=== PATIENT | male | born 1950 | race Caucasian/White ===

== ENCOUNTER 2018-11-14 18:24 | Observation (INO) | payer MEDICARE, OTHER, MEDICAID ==
[~2018-11-14] VITALS: Ht 167.6 cm; Wt 77.3 kg
--- NOTE | 2018-11-14 18:35 | NUR ---
PT IS REFUSING IV AT THIS TIME. IT WAS EXPLAINED THAT PT WILL HAVE LIMITED TX OPTIONS.
[2018-11-14 18:54] LABS: BASOPHILS # (AUTO) 0.1 X10'3 (0-0.2); BASOPHILS % (AUTO) 0.8 % (0-1); EOSINOPHILS # (AUTO) 0.6 X10'3 (0-0.9); EOSINOPHILS % (AUTO) 8.8 % (0-6); HEMATOCRIT 42.4 % (42.0-52.0); HEMOGLOBIN 14.3 g/dl (14.0-17.9); LYMPHOCYTES # (AUTO) 2.5 X10'3 (1.1-4.8); LYMPHOCYTES % (AUTO) 36.4 % (21-51); MEAN CORPUSCULAR HEMOGLOBIN 31.2 PG (27.0-31.0); MEAN CORPUSCULAR HGB CONC 33.6 g/dL (33.0-36.5); MEAN CORPUSCULAR VOLUME 92.9 FL (78-98); MEAN PLATELET VOLUME 7.3 FL (7.4-10.4); MONOCYTES # (AUTO) 0.7 X10'3 (0-0.9); MONOCYTES % (AUTO) 9.7 % (2-12); NEUTROPHILS % (AUTO) 44.3 % (42-75); PLATELET COUNT 302 X10'3 (140-440); RED BLOOD COUNT 4.56 X10'6 (4.70-6.10); RED CELL DISTRIBUTION WIDTH 13.6 % (11.5-14.5); WHITE BLOOD COUNT 6.8 X10'3 (4.5-11.0)
[2018-11-14 19:03] LABS: ALANINE AMINOTRANSFERASE 29 U/L (12-78); ALBUMIN 3.5 G/DL (3.4-5.0); ALKALINE PHOSPHATASE 75 IU/L (46-116); ANION GAP 12 (8-16); ASPARTATE AMINO TRANSFERASE 10 U/L (10-37); BILIRUBIN,TOTAL 0.2 MG/DL (0.1-1.0); BLOOD UREA NITROGEN 16 MG/DL (7-18); BUN/CREATININE RATIO 17.6 (5.4-32.0); CHLORIDE 106 MMOL/L (99-107); CREATININE 0.91 MG/DL (0.60-1.10); GLUCOSE 95 MG/DL (70-104); SODIUM 141 MMOL/L (135-145); TOTAL CARBON DIOXIDE 23.3 MMOL/L (24-32); TOTAL PROTEIN 6.9 G/DL (6.4-8.2); eGFR 83 ML/MIN
[2018-11-14 19:04] LABS: PARTIAL THROMBOPLASTIN TIME 27 SECONDS (22-32)
[2018-11-14] MEDS ORDERED: aspirin 325mg tablet PO ONE (19:10)
[2018-11-14] MEDS ORDERED: enoxaparin 100mg/ml syringe SUBCUT ONE (19:10)
--- NOTE | 2018-11-14 19:29 | NUR ---
pt refused lovenox medication despite doctor and rn explaining benefit of medication.
[2018-11-14] MEDS ORDERED: LORazepam 1 MG tablet PO ONE (19:40)
[2018-11-14] MEDS ORDERED: AMLO10TA4 PO (19:46)
[2018-11-14] MEDS ORDERED: METO25TA6 PO (19:48)
[2018-11-14] MEDS ORDERED: magnesium 2GM in 50ml NS 50 ML IV PRN (20:20)
[2018-11-14] MEDS ORDERED: magnesium Cl slow-release 64mg tablet PO PRN (20:20)
[2018-11-14] MEDS ORDERED: potassium CL 10mEq/100ml bag 100 ML IV PRN ×2 (20:20)
[2018-11-14] MEDS ORDERED: ondansetron/PF 4mg/2ml inj IV PRN (20:20)
[2018-11-14] MEDS ORDERED: acetaminophen 325mg tablet PO PRN (20:20)
[2018-11-14] MEDS ORDERED: potassium Cl 20 mEq SR tablet PO PRN ×2 (20:20)
[2018-11-14] MEDS ORDERED: magnesium 4gm in 100ml NS 100 ML IV PRN (20:20)
--- NOTE | 2018-11-14 20:58 | NUR ---
attempted to call report but rn is unable to take report now.
--- NOTE | 2018-11-14 21:57 | NUR ---
Patient in room PCU 6346L. I have received report from ISIS Nobles in ED and had the opportunity to ask questions and assume patient care. Patient able to ambulate from gurney to bed without difficulty. 20 G R FA and is saline locked. Placed on tele 50. On room air. Does not complain of any CP at this time, just anxiety. Will continue to monitor closely.
--- NOTE | 2018-11-14 22:37 | NUR ---
PAGER ID: [phone] MESSAGE: Ext. [phone], ISIS Perez for new admit 3027U Patient admitted for CP and is requesting Ativan or Valium. States he is very anxious person. Received PO Ativan in ER. Thank you. Addendum: 11/15/18 at 0424 by Caesar Patel RN Received order for ativan PO per Dr. Gleason.
[2018-11-14] MEDS ORDERED: diazepam 2mg tablet PO PRN (22:45)
[2018-11-14 23:00] VITALS: BP 114/60
[2018-11-15 01:08] LABS: ALBUMIN 3.2 G/DL (3.4-5.0); ANION GAP 7 (8-16); BLOOD UREA NITROGEN 18 MG/DL (7-18); BUN/CREATININE RATIO 18.8 (5.4-32.0); CALCIUM 8.9 MG/DL (8.5-10.1); CHLORIDE 106 MMOL/L (99-107); CREATININE 0.96 MG/DL (0.60-1.10); GLUCOSE 147 MG/DL (70-104); MAGNESIUM 2.2 MG/DL (1.5-2.4); POTASSIUM 4.1 MMOL/L (3.5-5.1); SODIUM 140 MMOL/L (135-145); TOTAL CARBON DIOXIDE 26.8 MMOL/L (24-32); eGFR 78 ML/MIN
[2018-11-15 03:00] VITALS: BP 109/51
--- NOTE | 2018-11-15 04:25 | NUR ---
PAGER ID: [phone] MESSAGE: Ext. [phone], ISIS Perez for 3027A Admitted for CP on 11/14. 3hr troponin- 0.06, 6hr troponin- 0.05 and trending down. EKG shows NSR in 90's. Just an update. Thank you.
--- NOTE | 2018-11-15 04:56 | NUR ---
PAGER ID: [phone] MESSAGE: Ext. [phone], ISIS Perez for 1647D Patient was wondering if home meds amlodipine and metoprolol are going to be given in AM. Just checked and not on eMAR. Thanks again!
[2018-11-15 06:30] VITALS: BP 125/67
--- NOTE | 2018-11-15 06:40 | NUR ---
Problems reprioritized. Patient report given, questions answered & plan of care reviewed with ISIS Mina.
--- NOTE | 2018-11-15 06:40 | NUR ---
Patient in room PCU 3027. I have received report from davion and had the opportunity to ask questions and assume patient care.
[2018-11-15] MEDS: heparin, porcine 5000 units/ml vial SQ SCH ×3 (07:22→20:00)
[2018-11-15] MEDS: pantoprazole 40mg Tablet.DR PO SCH (07:22)
[2018-11-15] MEDS: diazepam 2mg tablet PO PRN ×2 (07:23→13:31)
[2018-11-15] MEDS: docusate sod 100mg capsule PO SCH ×2 (07:29→20:14)
[2018-11-15] MEDS: K and/or MAG REPLACEMENT MC SCH (07:29)
[2018-11-15] MEDS: metoprolol succinate 25mg (24-HOUR) SR. Tablet PO SCH (07:30)
[2018-11-15] MEDS: amLODIPine 5mg tablet PO SCH (07:31)
[2018-11-15 07:33] LABS: BASOPHILS # (AUTO) 0.1 X10'3 (0-0.2); BASOPHILS % (AUTO) 1.2 % (0-1); EOSINOPHILS # (AUTO) 0.6 X10'3 (0-0.9); EOSINOPHILS % (AUTO) 10.2 % (0-6); HEMOGLOBIN 13.8 g/dl (14.0-17.9); LYMPHOCYTES # (AUTO) 2.1 X10'3 (1.1-4.8); LYMPHOCYTES % (AUTO) 34.1 % (21-51); MEAN CORPUSCULAR HEMOGLOBIN 31.1 PG (27.0-31.0); MEAN CORPUSCULAR HGB CONC 33.5 g/dL (33.0-36.5); MEAN CORPUSCULAR VOLUME 92.9 FL (78-98); MEAN PLATELET VOLUME 7.4 FL (7.4-10.4); MONOCYTES # (AUTO) 0.6 X10'3 (0-0.9); MONOCYTES % (AUTO) 9.2 % (2-12); NEUTROPHILS # (AUTO) 2.7 X10'3 (1.8-7.7); NEUTROPHILS % (AUTO) 45.3 % (42-75); PLATELET COUNT 280 X10'3 (140-440); RED BLOOD COUNT 4.42 X10'6 (4.70-6.10); RED CELL DISTRIBUTION WIDTH 13.1 % (11.5-14.5)
[2018-11-15] MEDS ORDERED: iohexol 350MG/ML 100ml bottle IV ONE (10:54)
[2018-11-15] MEDS: morphine 2 MG/ML inj. syringe IV PRN ×3 (11:04→21:21)
[2018-11-15 11:30] VITALS: BP 123/91
[2018-11-15 15:30] VITALS: BP 112/61
--- NOTE | 2018-11-15 16:00 | NUR ---
Paged Dr. Whipple PAGER ID: [phone] MESSAGE: [phone] Alexys Mak Patient would like an increase in the valium dosage. patient states he takes 10mg. he is currently very anxious Macey ext [phone]
[2018-11-15] MEDS: diazepam 5mg tablet PO PRN (16:14)
--- NOTE | 2018-11-15 17:30 | NUR ---
Patient transferring to surgical unit. Called and gave report to surgical nurse
--- NOTE | 2018-11-15 17:35 | NUR ---
I have received report from ISIS Christian and had the opportunity to ask questions and assume patient care.
--- NOTE | 2018-11-15 17:45 | NUR ---
Received patient from Tele. He is alert oriented and ambulating around the room. Patient immediately told me that he didn't know what was going on and that he wanted to talk to the doctor. I paged Dr. Whipple; hopefully he will come by and let him know what was on his scans.
[2018-11-15 18:00] VITALS: BP 117/58
[2018-11-15] MEDS ORDERED: amLODIPine 5mg tablet PO SCH (18:00)
--- NOTE | 2018-11-15 18:15 | NUR ---
Problems reprioritized. Patient report given, questions answered & plan of care reviewed with ISIS Perea.
--- NOTE | 2018-11-15 18:20 | NUR ---
Patient in room ABENA 356. I have received report from Gladys Crain and had the opportunity to ask questions and assume patient care. Addendum: 11/15/18 at 1940 by Brit Sow RN Amended: Links added.
[2018-11-15 20:00] VITALS: BP 117/58
[2018-11-15] MEDS ORDERED: diazepam 5mg tablet PO ONE (20:40)
--- NOTE | 2018-11-15 20:41 | NUR ---
pt very anxious had ms 3 hours ago pt stated did not need that but said Valium given 4 hours ago and he is super anxious wants another 5mg. Dr Elkins called and notified of this and that pt wants to take aspirin instead of the heparin as he has bruising from taking aspirin daily already. no orders for aspirin received stated to document and let Am Dr address that. pt also wants to talk with an Md regarding plan of care and trachea deviation. Dr Elkins stated he is unable to do that as he is covering whole hospital and does not know pt well enough. That too was diverted to Am hospitalist. did received a one time order to give an additional 5mg of Valium tonight for the pt.
[2018-11-15] MEDS ORDERED: tamsulosin 0.4mg capsule PO SCH (21:00)
--- NOTE | 2018-11-15 22:05 | NUR ---
resting on side eyes closed no s&s of distress.
[2018-11-16] VITALS: BP 112/66
--- NOTE | 2018-11-16 00:05 | NUR ---
pt voided 650 cl yellow urine in the urinal.
--- NOTE | 2018-11-16 02:15 | NUR ---
resting eyes closed without changes or s&s of distress at this time.
--- NOTE | 2018-11-16 03:52 | NUR ---
pt resting eyes closed without changes.
[2018-11-16 05:15] LABS: BASOPHILS # (AUTO) 0.1 X10'3 (0-0.2); BASOPHILS % (AUTO) 0.9 % (0-1); EOSINOPHILS # (AUTO) 0.6 X10'3 (0-0.9); EOSINOPHILS % (AUTO) 9.6 % (0-6); HEMATOCRIT 42.2 % (42.0-52.0); HEMOGLOBIN 14.1 g/dl (14.0-17.9); LYMPHOCYTES # (AUTO) 1.8 X10'3 (1.1-4.8); LYMPHOCYTES % (AUTO) 27.9 % (21-51); MEAN CORPUSCULAR HEMOGLOBIN 30.9 PG (27.0-31.0); MEAN CORPUSCULAR HGB CONC 33.3 g/dL (33.0-36.5); MEAN CORPUSCULAR VOLUME 92.6 FL (78-98); MEAN PLATELET VOLUME 7.2 FL (7.4-10.4); MONOCYTES # (AUTO) 0.6 X10'3 (0-0.9); MONOCYTES % (AUTO) 9.9 % (2-12); NEUTROPHILS # (AUTO) 3.4 X10'3 (1.8-7.7); NEUTROPHILS % (AUTO) 51.7 % (42-75); PLATELET COUNT 265 X10'3 (140-440); RED BLOOD COUNT 4.56 X10'6 (4.70-6.10); RED CELL DISTRIBUTION WIDTH 13.4 % (11.5-14.5); WHITE BLOOD COUNT 6.5 X10'3 (4.5-11.0)
[2018-11-16 05:32] LABS: ALBUMIN 3.2 G/DL (3.4-5.0); ANION GAP 6 (8-16); BLOOD UREA NITROGEN 14 MG/DL (7-18); BUN/CREATININE RATIO 15.2 (5.4-32.0); CALCIUM 8.8 MG/DL (8.5-10.1); CHLORIDE 106 MMOL/L (99-107); CREATININE 0.92 MG/DL (0.60-1.10); GLUCOSE 129 MG/DL (70-104); MAGNESIUM 2.2 MG/DL (1.5-2.4); POTASSIUM 4.2 MMOL/L (3.5-5.1); SODIUM 141 MMOL/L (135-145); TOTAL CARBON DIOXIDE 29.1 MMOL/L (24-32); eGFR 82 ML/MIN
--- NOTE | 2018-11-16 05:55 | NUR ---
resting without change.
--- NOTE | 2018-11-16 06:41 | NUR ---
Problems reprioritized. Patient report given, questions answered & plan of care reviewed with Ondina Crain. Addendum: 11/16/18 at 0641 by Brit Sow RN Amended: Links added.
--- NOTE | 2018-11-16 07:00 | NUR ---
Patient in room ABENA 356. I have received report from and had the opportunity to ask questions and assume patient care. Addendum: 11/16/18 at 0920 by Ondina Garcia RN received report from ISIS Perea
[2018-11-16] MEDS: heparin, porcine 5000 units/ml vial SQ SCH (07:30)
[2018-11-16] MEDS: docusate sod 100mg capsule PO SCH (07:30)
[2018-11-16] MEDS: pantoprazole 40mg Tablet.DR PO SCH (07:30)
[2018-11-16] MEDS: metoprolol succinate 25mg (24-HOUR) SR. Tablet PO SCH (07:30)
[2018-11-16] MEDS: diazepam 5mg tablet PO PRN ×2 (07:31→13:58)
[2018-11-16] MEDS: amLODIPine 5mg tablet PO SCH (07:31)
[2018-11-16 07:34] VITALS: BP 113/66
[2018-11-16] MEDS: K and/or MAG REPLACEMENT MC SCH (08:00)
--- NOTE | 2018-11-16 08:00 | NUR ---
Pt educated about each medication this AM and the importance of taking each medication. Pt verbalized understanding but refused to take: Protonix - refused because he doesn't normally take it and "doesn't need it" Metoprolol - refused "because i'm not getting up and moving around" - RN encouraged pt to get up and move. Heparin - refused because he wants Aspirin instead which is not ordered at this time. RN educated on the difference between Heparin and Aspirin. Pt verbalized understanding but still refused Heparin. Pt c/o headache and requesting Aspirin. RN notified pt that Aspirin is not ordered at this time and recommended Tylenol until Aspirin can be ordered. Pt refused Tylenol and stated he'll wait for the Aspirin whenever the doctor orders it.
--- NOTE | 2018-11-16 09:27 | NUR ---
Tele removed per order. Order for 24hr tele .
[2018-11-16] MEDS: morphine 2 MG/ML inj. syringe IV PRN (09:41)
[2018-11-16 11:45] VITALS: BP 111/62
--- NOTE | 2018-11-16 13:43 | NUR ---
Dr. Guaman ordered Aspirin for pt per pt request. stated ok to give now.
[2018-11-16] MEDS ORDERED: aspirin 81mg tablet.DR PO SCH (13:45)
[2018-11-16] MEDS ORDERED: PANT40TA4 PO (14:34)
[2018-11-16] MEDS ORDERED: ASPI-1071 PO (14:34)
[2018-11-16] MEDS ORDERED: AZIT500T PO (14:36)
--- NOTE | 2018-11-16 16:06 | NUR ---
Reviewed discharge instructions and new prescriptions with pt. Pt verbalized understanding. Pt stated he would take the antibiotic for 5 days as prescribed, prophylactically for throat soreness. Pt refuses to take the Protonix. Pt educated on the importance of taking Protonix and stated "yeah, but I just won't take it." Wilfredo with [facility] notified pt refuses Protonix. Ludwig's delivering pts Aspirin and abx to bedside.
[2018-11-17] MEDS ORDERED: aspirin 81mg tablet.DR PO SCH (08:00)
== END 2018-11-16 16:22 | disposition home or self-care (01) ==
LOC: ER 18:25 → PCU 3S 20:58 → SUR 3N 11-15 17:47
PROVIDERS: ADMIT Internal Medicine; ATTEND Family Medicine
DX: R07.89 Other chest pain (principal); F41.9 Anxiety disorder, unspecified; R30.0 Dysuria; I11.0 Hypertensive heart disease with heart failure; I50.9 Heart failure, unspecified; Z88.1 Allergy status to other antibiotic agents
CPT/HCPCS: 36415; 71045; 71275; 80048; 80053; 83735; 84153; 84484; 85025; 85379; 85610; 85730; 93005; 96374; 96375; 96376; 99284; G0378; J1644; J2270; Q9967; J1650

== ENCOUNTER 2018-12-21 14:11 | Inpatient (IN) | payer MEDICARE, MEDICAID ==
[~2018-12-21] VITALS: Ht 162.6 cm; Wt 77.0 kg
[~2018-12-21 14:11] MED LIST: AMLO10TA4 PO; ASPI-1071 PO; METO25TA6 PO; PANT40TA4 PO
[2018-12-21 14:36] LABS: BASOPHILS # (AUTO) 0.1 X10'3 (0-0.2); EOSINOPHILS # (AUTO) 0.2 X10'3 (0-0.9); EOSINOPHILS % (AUTO) 3.3 % (0-6); HEMATOCRIT 44.2 % (42.0-52.0); HEMOGLOBIN 14.7 g/dl (14.0-17.9); LYMPHOCYTES # (AUTO) 1.9 X10'3 (1.1-4.8); LYMPHOCYTES % (AUTO) 29.6 % (21-51); MEAN CORPUSCULAR HEMOGLOBIN 30.5 PG (27.0-31.0); MEAN CORPUSCULAR HGB CONC 33.3 g/dL (33.0-36.5); MEAN CORPUSCULAR VOLUME 91.7 FL (78-98); MEAN PLATELET VOLUME 6.8 FL (7.4-10.4); MONOCYTES # (AUTO) 0.5 X10'3 (0-0.9); MONOCYTES % (AUTO) 7.3 % (2-12); NEUTROPHILS # (AUTO) 3.8 X10'3 (1.8-7.7); NEUTROPHILS % (AUTO) 58.8 % (42-75); PLATELET COUNT 320 X10'3 (140-440); RED BLOOD COUNT 4.82 X10'6 (4.70-6.10); WHITE BLOOD COUNT 6.5 X10'3 (4.5-11.0)
[2018-12-21 14:53] LABS: PARTIAL THROMBOPLASTIN TIME 27 SECONDS (22-32)
[2018-12-21 14:55] LABS: ALANINE AMINOTRANSFERASE 37 U/L (12-78); ALBUMIN 3.8 G/DL (3.4-5.0); ALBUMIN/GLOBULIN RATIO 1.1 (1.1-1.5); ALKALINE PHOSPHATASE 62 IU/L (46-116); ANION GAP 8 (8-16); ASPARTATE AMINO TRANSFERASE 19 U/L (10-37); BILIRUBIN,TOTAL 0.4 MG/DL (0.1-1.0); BLOOD UREA NITROGEN 11 MG/DL (7-18); BUN/CREATININE RATIO 10.5 (5.4-32.0); CALCIUM 8.9 MG/DL (8.5-10.1); CHLORIDE 102 MMOL/L (99-107); CREATININE 1.05 MG/DL (0.60-1.10); GLUCOSE 162 MG/DL (70-104); POTASSIUM 4.5 MMOL/L (3.5-5.1); SODIUM 139 MMOL/L (135-145); TOTAL PROTEIN 7.4 G/DL (6.4-8.2); eGFR 70 ML/MIN
[2018-12-21] MEDS ORDERED: aspirin 81mg tab.chew PO ONE ×2 (15:10)
[2018-12-21] MEDS ORDERED: nitroGLYCERIN 0.4mg SUBLingual tab SL PRN (15:10)
[2018-12-21] MEDS ORDERED: ondansetron/PF 4mg/2ml inj IV ONE (15:10)
[2018-12-21] MEDS ORDERED: normal saline 1000ML IV soln IVB ONE (15:10)
[2018-12-21] MEDS ORDERED: METO-539 PO (15:51)
--- NOTE | 2018-12-21 15:51 | NUR ---
ASSISITING RN WITH PT CARE, 1ST LITER NS INFUSING W/O, RECEIVED 1ST NITRO, REFUSING ZOFRAN AT THIS TIME, PT C/O CHEST "PRESSURE" 11/27 PRIOR TO RECEIVING NITRO
--- NOTE | 2018-12-21 15:55 | NUR ---
REPORT TO ARIS MARINELLI
[2018-12-21] MEDS ORDERED: LORazepam 2 mg/ml vial IV ONE (16:10)
[2018-12-21 16:28] LABS: D-DIMER 0.24 MG/L FEU (0-0.50)
[2018-12-21] MEDS ORDERED: magnesium hydroxide 30ml (MOM) UD suspension PO PRN (17:45)
[2018-12-21] MEDS ORDERED: mag hydrox/Alum hydrox/simeth 30ml oral suspension PO PRN (17:45)
[2018-12-21] MEDS ORDERED: ondansetron/PF 4mg/2ml inj IV PRN (17:45)
[2018-12-21] MEDS ORDERED: magnesium 4gm in 100ml NS 100 ML IV PRN (17:45)
[2018-12-21] MEDS ORDERED: potassium Cl 20 mEq SR tablet PO PRN ×2 (17:45)
[2018-12-21] MEDS ORDERED: magnesium 2GM in 50ml NS 50 ML IV PRN (17:45)
[2018-12-21] MEDS ORDERED: magnesium Cl slow-release 64mg tablet PO PRN (17:45)
[2018-12-21] MEDS ORDERED: acetaminophen 325mg tablet PO PRN (17:45)
[2018-12-21] MEDS ORDERED: potassium CL 10mEq/100ml bag 100 ML IV PRN ×2 (17:45)
[2018-12-21] MEDS: diazepam 5mg tablet PO PRN (19:07)
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
[2018-12-21] MEDS ORDERED: heparin 10,000 units/1 ML INJ IV PRN (19:15)
[2018-12-21] MEDS ORDERED: heparin 10,000 units/1 ML INJ IV ONE (19:15)
[2018-12-21] MEDS: heparin 25,000 UNIT/250ml bag 250 ML IV SCH (19:39)
[2018-12-21 19:42] LABS: PARTIAL THROMBOPLASTIN TIME 28 SECONDS (22-32)
--- NOTE | 2018-12-21 19:58 | NUR ---
Patient in room PCU 3015. I have received report from Tamara MARINELLI and had the opportunity to ask questions and assume patient care.
[2018-12-21 20:15] VITALS: BP 143/73
[2018-12-21] MEDS: prazosin 1mg capsule PO SCH (20:34)
[2018-12-21] MEDS: HYDROcodone/acetaminophen 5mg/325mg tablet PO PRN (20:35)
[2018-12-21 23:00] VITALS: BP 103/59
[2018-12-22] VITALS (15 sets, daily range): BP systolic 101–126; BP diastolic 55–74
[2018-12-22] MEDS ORDERED: heparin, porcine 5000 units/ml vial SQ SCH
[2018-12-22 02:21] LABS: BASOPHILS # (AUTO) 0.1 X10'3 (0-0.2); BASOPHILS % (AUTO) 1.2 % (0-1); EOSINOPHILS # (AUTO) 0.4 X10'3 (0-0.9); EOSINOPHILS % (AUTO) 7.4 % (0-6); HEMATOCRIT 39.2 % (42.0-52.0); HEMOGLOBIN 13.2 g/dl (14.0-17.9); LYMPHOCYTES # (AUTO) 2.3 X10'3 (1.1-4.8); MEAN CORPUSCULAR HEMOGLOBIN 30.8 PG (27.0-31.0); MEAN CORPUSCULAR HGB CONC 33.7 g/dL (33.0-36.5); MEAN CORPUSCULAR VOLUME 91.4 FL (78-98); MEAN PLATELET VOLUME 6.9 FL (7.4-10.4); MONOCYTES # (AUTO) 0.5 X10'3 (0-0.9); MONOCYTES % (AUTO) 9.5 % (2-12); NEUTROPHILS % (AUTO) 37.9 % (42-75); PLATELET COUNT 252 X10'3 (140-440); RED BLOOD COUNT 4.29 X10'6 (4.70-6.10); RED CELL DISTRIBUTION WIDTH 13.1 % (11.5-14.5); WHITE BLOOD COUNT 5.3 X10'3 (4.5-11.0)
[2018-12-22 02:36] LABS: ALANINE AMINOTRANSFERASE 30 U/L (12-78); ALBUMIN 3.1 G/DL (3.4-5.0); ALBUMIN/GLOBULIN RATIO 1.1 (1.1-1.5); ALKALINE PHOSPHATASE 50 IU/L (46-116); ANION GAP 6 (8-16); ASPARTATE AMINO TRANSFERASE 16 U/L (10-37); BILIRUBIN,TOTAL 0.4 MG/DL (0.1-1.0); BLOOD UREA NITROGEN 14 MG/DL (7-18); BUN/CREATININE RATIO 19.2 (5.4-32.0); CALCIUM 8.4 MG/DL (8.5-10.1); CHLORIDE 107 MMOL/L (99-107); CREATININE 0.73 MG/DL (0.60-1.10); GLUCOSE 108 MG/DL (70-104); SODIUM 141 MMOL/L (135-145); TOTAL CARBON DIOXIDE 28.3 MMOL/L (24-32); eGFR > 90 ML/MIN
[2018-12-22 02:38] LABS: CHOL/HDL RATIO 4.2 (0.00-4.99); CHOLESTEROL 191 MG/DL (0-200); HDL CHOLESTEROL 46 MG/DL (35-60); LDL CHOLESTEROL 130 MG/DL (50-100); MAGNESIUM 2.2 MG/DL (1.5-2.4); TRIGLYCERIDES 121 MG/DL (20-135)
[2018-12-22] MEDS: heparin 25,000 UNIT/250ml bag 250 ML IV SCH ×2 (02:54→03:07)
[2018-12-22] MEDS: diazepam 5mg tablet PO PRN ×2 (03:07→11:29)
--- NOTE | 2018-12-22 06:05 | NUR ---
Problems reprioritized. Patient report given, questions answered & plan of care reviewed with Maia MARINELLI.
--- NOTE | 2018-12-22 06:07 | NUR ---
Patient in room PCU 3015. I have received report from ISIS Bajwa and had the opportunity to ask questions and assume patient care. Patient currently sleeping in bed, bed locked and low, call light in reach, no acute distress. Will continue to monitor.
[2018-12-22] MEDS: aspirin 81mg tablet.DR PO SCH (07:52)
[2018-12-22] MEDS ORDERED: K and/or MAG REPLACEMENT MC SCH (08:00)
[2018-12-22] MEDS ORDERED: metoprolol succinate 25mg (24-HOUR) SR. Tablet PO SCH (08:00)
[2018-12-22] MEDS: HYDROcodone/acetaminophen 5mg/325mg tablet PO PRN (09:52)
--- NOTE | 2018-12-22 10:00 | NUR ---
Dr. Post at bedside Addendum: 12/22/18 at 1114 by Maia Espinosa RN unfinished note Explaining cath procedure to patient, ordered NS@100ml/hr and benadryl 50mg PO to prepare patient for cath. Nurse told that 20g IV in right wrist is sufficient for procedure and patient does not need to have additional IV access.
[2018-12-22] MEDS ORDERED: diphenhydrAMINE 25mg capsule PO ONE (10:05)
[2018-12-22] MEDS: normal saline 1000ml 1,000 ML IV SCH ×2 (10:28→20:05)
[2018-12-22] MEDS ORDERED: LIDOcaine 1% (10mg/ml)w/preservative injection 20ml MDV ONE (15:09)
[2018-12-22] MEDS ORDERED: midazolam 2 mg/2 ml injection ONE ×2 (15:09→15:31)
[2018-12-22] MEDS ORDERED: iohexol 350 MG/ML 50ML vial IV ONE (15:09)
[2018-12-22] MEDS ORDERED: fentaNYL/PF 50MCG/1 ML 2ML syringe ONE (15:09)
[2018-12-22] MEDS ORDERED: iohexol 350MG/ML 100ml bottle IV ONE (15:10)
--- NOTE | 2018-12-22 15:30 | NUR ---
patient down to chemistry laboratory technician via wheelchair, NS@100ml/hr, heparin@11ml/hr
[2018-12-22] MEDS ORDERED: nitroGLYCERIN-Tridil 50MG/D5W 250 ML IV ONE (15:35)
[2018-12-22] MEDS ORDERED: proCHLORperazine 10 MG/2 ml inj ONE (15:42)
--- NOTE | 2018-12-22 15:54 | NUR ---
PAGER ID: [phone] MESSAGE: ISIS Carvalho, per doctor Sincere, please call laborer electroplating stat
[2018-12-22] MEDS ORDERED: HYDROcodone/acetaminophen 5mg/325mg tablet PO PRN (16:30)
[2018-12-22] MEDS ORDERED: proCHLORperazine 10 MG/2 ml inj IV PRN (16:35)
[2018-12-22] MEDS ORDERED: HYDROcodone/acetaminophen 10/325mg tab PO PRN (16:35)
[2018-12-22] MEDS ORDERED: acetaminophen 325mg tablet PO PRN (16:35)
[2018-12-22] MEDS ORDERED: OXAZEpam 15mg capsule PO PRN (16:35)
--- NOTE | 2018-12-22 18:01 | NUR ---
Student documentation: I have reviewed and agree with all interventions, assessments performed and documented by Raissa Franco.
--- NOTE | 2018-12-22 18:12 | NUR ---
Student documentation: I have reviewed and agree with all interventions, assessments performed and documented by Raissa Franco.
--- NOTE | 2018-12-22 18:13 | NUR ---
Reported off to night coordinator nurse Aydee. Pt is in bed, laying flat due to post cardiac cath. Bed is in low position and locked. Call light in reach.
--- NOTE | 2018-12-22 18:13 | NUR ---
Problems reprioritized. Patient report given, questions answered & plan of care reviewed with ISIS Bajwa. Patient currently resting in bed, bed locked and low, call light in reach, cardiac cath dressing assessed with no bleeding at site or hematoma. VSS at shift change.
--- NOTE | 2018-12-22 18:36 | NUR ---
Patient in room PCU 3015. I have received report from Maia MARINELLI and had the opportunity to ask questions and assume patient care.
[2018-12-22] MEDS: prazosin 1mg capsule PO SCH (21:00)
[2018-12-23 00:53] VITALS: BP 108/54
[2018-12-23 03:00] VITALS: BP 109/56
[2018-12-23 04:53] VITALS: BP 126/64
[2018-12-23 06:00] VITALS: BP 118/64
--- NOTE | 2018-12-23 06:00 | NUR ---
Patient in room PCU 3015. I have received report from Aydee MARINELLI and had the opportunity to ask questions and assume patient care.
--- NOTE | 2018-12-23 06:02 | NUR ---
Problems reprioritized. Patient report given, questions answered & plan of care reviewed with Amy RN.
[2018-12-23 06:31] LABS: ALANINE AMINOTRANSFERASE 30 U/L (12-78); ALBUMIN 3.1 G/DL (3.4-5.0); ALKALINE PHOSPHATASE 49 IU/L (46-116); ANION GAP 6 (8-16); ASPARTATE AMINO TRANSFERASE 15 U/L (10-37); BILIRUBIN,TOTAL 0.4 MG/DL (0.1-1.0); BLOOD UREA NITROGEN 9 MG/DL (7-18); BUN/CREATININE RATIO 9.5 (5.4-32.0); CALCIUM 8.5 MG/DL (8.5-10.1); CHLORIDE 108 MMOL/L (99-107); CREATININE 0.95 MG/DL (0.60-1.10); GLUCOSE 89 MG/DL (70-104); MAGNESIUM 2.2 MG/DL (1.5-2.4); POTASSIUM 4.4 MMOL/L (3.5-5.1); SODIUM 144 MMOL/L (135-145); TOTAL CARBON DIOXIDE 29.8 MMOL/L (24-32); TOTAL PROTEIN 6.1 G/DL (6.4-8.2); eGFR 79 ML/MIN
[2018-12-23 06:33] LABS: BASOPHILS # (AUTO) 0.1 X10'3 (0-0.2); EOSINOPHILS # (AUTO) 0.5 X10'3 (0-0.9); EOSINOPHILS % (AUTO) 8.2 % (0-6); HEMATOCRIT 40.6 % (42.0-52.0); HEMOGLOBIN 13.5 g/dl (14.0-17.9); LYMPHOCYTES # (AUTO) 1.7 X10'3 (1.1-4.8); MEAN CORPUSCULAR HEMOGLOBIN 30.9 PG (27.0-31.0); MEAN CORPUSCULAR HGB CONC 33.3 g/dL (33.0-36.5); MEAN CORPUSCULAR VOLUME 92.6 FL (78-98); MEAN PLATELET VOLUME 7.2 FL (7.4-10.4); MONOCYTES # (AUTO) 0.5 X10'3 (0-0.9); MONOCYTES % (AUTO) 9.2 % (2-12); NEUTROPHILS % (AUTO) 51.6 % (42-75); PLATELET COUNT 259 X10'3 (140-440); RED BLOOD COUNT 4.38 X10'6 (4.70-6.10); RED CELL DISTRIBUTION WIDTH 13.5 % (11.5-14.5); WHITE BLOOD COUNT 5.7 X10'3 (4.5-11.0)
[2018-12-23] MEDS ORDERED: metoprolol succinate 25mg (24-HOUR) SR. Tablet PO SCH (08:00)
[2018-12-23] MEDS ORDERED: METO-395 PO (08:34)
[2018-12-23] MEDS ORDERED: DIAZ5TAB4 PO (08:34)
[2018-12-23] MEDS ORDERED: NITR0.4T51 SL (08:34)
[2018-12-23] MEDS ORDERED: CLOP75TA15 PO (08:34)
[2018-12-23] MEDS ORDERED: ATOR20TA66 PO (08:34)
[2018-12-23] MEDS: aspirin 81mg tablet.DR PO SCH (09:30)
--- NOTE | 2018-12-23 09:40 | NUR ---
Patient discharged stable to home. Discharge instructions given verbally and written. Patient verbalized understanding. PIV removed from right forearm, canula intact. All personal belongings returned to patient. Tele box removed and returned to telephone answerer room. Patient wheeled out to personal vehicle to drive home independently.
--- NOTE | 2018-12-23 09:43 | NUR ---
Prescriptions called to [facility] in [place], [place].
== END 2018-12-23 09:45 | disposition home or self-care (01) | DRG 282 ==
LOC: ER 14:12 → PCU 3S 19:57 → OBSVTOIN 19:57 → CMPBEDREQ 20:02
PROVIDERS: ADMIT Family Medicine; ATTEND Family Medicine
PROC: 4A023N7 Measurement of Cardiac Sampling and Pressure, Left Heart, Percutaneous Approach (ICD-10-PCS; principal; 2018-12-22)
PROC: B2111ZZ Fluoroscopy of Multiple Coronary Arteries using Low Osmolar Contrast (ICD-10-PCS; 2018-12-22)
PROC: B2151ZZ Fluoroscopy of Left Heart using Low Osmolar Contrast (ICD-10-PCS; 2018-12-22)
PROC: B41F1ZZ Fluoroscopy of Right Lower Extremity Arteries using Low Osmolar Contrast (ICD-10-PCS; 2018-12-22)
DX: I21.4 Non-ST elevation (NSTEMI) myocardial infarction (principal); I25.110 Atherosclerotic heart disease of native coronary artery with unstable angina pectoris; F12.90 Cannabis use, unspecified, uncomplicated; F43.12 Post-traumatic stress disorder, chronic; E78.5 Hyperlipidemia, unspecified; F41.1 Generalized anxiety disorder; R00.1 Bradycardia, unspecified; I11.0 Hypertensive heart disease with heart failure; I50.9 Heart failure, unspecified; N40.0 Benign prostatic hyperplasia without lower urinary tract symptoms; Z79.02 Long term (current) use of antithrombotics/antiplatelets; Z79.82 Long term (current) use of aspirin; Z79.899 Other long term (current) drug therapy; Z82.49 Family history of ischemic heart disease and other diseases of the circulatory system; Z88.1 Allergy status to other antibiotic agents; Z88.8 Allergy status to other drugs, medicaments and biological substances; Y92.89 Other specified places as the place of occurrence of the external cause
CPT/HCPCS: 36415; 71045; 80053; 80061; 83735; 84484; 85025; 85379; 85610; 85730; 87081; 93005; 93306; 93458; 96374; 96375; 99152; 99153; 99285; A4620; A6258; C1760; C1769; G0378; J0780; J1644; J2001; J2060; J2250; J2405; J3010; J3490; J7030; Q0163; Q9967

== ENCOUNTER 2019-09-08 12:56 | Emergency (ER) | payer MEDICARE, OTHER, MEDICAID ==
[~2019-09-08] VITALS: Ht 165.1 cm; Wt 80.7 kg
[~2019-09-08 12:56] MED LIST changes: -AMLO10TA4 PO; +ATOR20TA66 PO; +CLOP75TA15 PO; +DIAZ5TAB4 PO; +METO-395 PO; -METO25TA6 PO; -PANT40TA4 PO
[2019-09-08 13:06] VITALS: BP 145/63
[2019-09-08] MEDS ORDERED: HYDR-3965 PO (14:32)
== END 2019-09-08 14:49 | disposition home or self-care (01) ==
LOC: ER 12:56
DX: M25.512 Pain in left shoulder (principal); I50.9 Heart failure, unspecified; I11.0 Hypertensive heart disease with heart failure; F41.9 Anxiety disorder, unspecified; Z88.0 Allergy status to penicillin; Z88.8 Allergy status to other drugs, medicaments and biological substances; Z79.82 Long term (current) use of aspirin; Z79.899 Other long term (current) drug therapy
CPT/HCPCS: 73030; 99284

== ENCOUNTER 2021-02-25 11:27 | Emergency (ER) | payer MEDICARE, OTHER, MEDICAID ==
[~2021-02-25] VITALS: Ht 165.1 cm; Wt 82.5 kg
[2021-02-25 12:33] VITALS: BP 163/79
== END 2021-02-25 17:55 | disposition left against medical advice (07) ==
LOC: ER 11:28
DX: R00.2 Palpitations (principal); I11.0 Hypertensive heart disease with heart failure; I50.9 Heart failure, unspecified; Z88.1 Allergy status to other antibiotic agents; Z88.8 Allergy status to other drugs, medicaments and biological substances; Z79.82 Long term (current) use of aspirin; Z79.899 Other long term (current) drug therapy; Z72.89 Other problems related to lifestyle; Z96.659 Presence of unspecified artificial knee joint
CPT/HCPCS: 93005; 99281; 99283

== ENCOUNTER 2022-04-02 08:23 | Inpatient (IN) | payer MEDICARE, OTHER ==
[~2022-04-02] VITALS: Ht 167.6 cm; Wt 75.0 kg
[2022-04-02] VITALS (9 sets, daily range): BP systolic 139–175; BP diastolic 74–86
[2022-04-02 08:39] LABS: BASOPHILS # (AUTO) 0.1 X10'3 (0-0.2); BASOPHILS % (AUTO) 0.8 % (0-1); EOSINOPHILS # (AUTO) 0.5 X10'3 (0-0.9); EOSINOPHILS % (AUTO) 7.7 % (0-6); HEMATOCRIT 43.1 % (42.0-52.0); HEMOGLOBIN 14.3 g/dl (14.0-17.9); LYMPHOCYTES # (AUTO) 2.5 X10'3 (1.1-4.8); LYMPHOCYTES % (AUTO) 37.3 % (21-51); MEAN CORPUSCULAR HEMOGLOBIN 31.2 PG (27.0-31.0); MEAN CORPUSCULAR HGB CONC 33.3 g/dL (33.0-36.5); MEAN CORPUSCULAR VOLUME 93.7 FL (78-98); MEAN PLATELET VOLUME 7.4 FL (7.4-10.4); MONOCYTES # (AUTO) 0.5 X10'3 (0-0.9); NEUTROPHILS # (AUTO) 3.1 X10'3 (1.8-7.7); NEUTROPHILS % (AUTO) 46.2 % (42-75); PLATELET COUNT 285 X10'3 (140-440); RED CELL DISTRIBUTION WIDTH 13.5 % (11.5-14.5); WHITE BLOOD COUNT 6.6 X10'3 (4.5-11.0)
[2022-04-02] MEDS ORDERED: aspirin 81mg tab.chew PO ONE (09:15)
[2022-04-02 09:27] LABS: BILIRUBIN,TOTAL 0.3 MG/DL (0.1-1.0); BLOOD UREA NITROGEN 15 MG/DL (7-18); BUN/CREATININE RATIO 17.2 (5.4-32.0); CHLORIDE 105 MMOL/L (99-107); CREATININE 0.87 MG/DL (0.60-1.10); POTASSIUM 4.6 MMOL/L (3.5-5.1); SODIUM 140 MMOL/L (135-145); TOTAL PROTEIN 6.6 G/DL (6.4-8.2); eGFR 86 ML/MIN
[2022-04-02] MEDS ORDERED: metoprolol tartrate 50mg tablet PO ONE (09:30)
[2022-04-02] MEDS ORDERED: enoxaparin 100mg/ml syringe SUBCUT ONE (09:40)
[2022-04-02] MEDS ORDERED: nitroGLYCERIN 0.4mg SUBLingual tab SL PRN ×3 (09:49→09:50)
[2022-04-02] MEDS ORDERED: normal saline 1000ml 1,000 ML IV SCH (09:50)
[2022-04-02] MEDS ORDERED: mag hydrox/Alum hydrox/simeth 30ml oral suspension PO PRN (09:50)
[2022-04-02] MEDS ORDERED: magnesium 4gm in 100ml NS 100 ML IV PRN (09:50)
[2022-04-02] MEDS ORDERED: potassium Cl 40MEQ/1/2NS 520ml 520 ML IV PRN (09:50)
[2022-04-02] MEDS ORDERED: acetaminophen 325mg tablet PO PRN ×2 (09:50)
[2022-04-02] MEDS ORDERED: HYDROcodone/acetaminophen 10/325mg tab PO PRN (09:50)
[2022-04-02] MEDS ORDERED: aminophylline 500mg/20ml vial IV PRN (09:50)
[2022-04-02] MEDS ORDERED: HYDROcodone/acetaminophen 5mg/325mg tablet PO PRN (09:50)
[2022-04-02] MEDS ORDERED: PERFLUTREN PROTEIN-A MICROSPHR (Optison) 0.22 MG/ML 3ML VIAL IV ONE (09:50)
[2022-04-02] MEDS ORDERED: potassium Cl 20 mEq SR tablet PO PRN ×2 (09:50)
[2022-04-02] MEDS ORDERED: metoprolol tartrate 1mg/ml inj IV PRN (09:50)
[2022-04-02] MEDS ORDERED: magnesium Cl slow-release 64mg tablet PO PRN (09:50)
[2022-04-02] MEDS ORDERED: regadenoson 0.4mg/5ml syringe IV PRN (09:50)
[2022-04-02] MEDS ORDERED: magnesium hydroxide 30ml (MOM) UD suspension PO PRN (09:50)
[2022-04-02] MEDS ORDERED: ondansetron/PF 4mg/2ml inj IV PRN (09:50)
[2022-04-02] MEDS ORDERED: ondansetron 4mg rapidly disintigrating tab PO PRN (09:50)
[2022-04-02 10:32] LABS: ALANINE AMINOTRANSFERASE 29 U/L (12-78); ALBUMIN 3.3 G/DL (3.4-5.0); ALKALINE PHOSPHATASE 67 IU/L (46-116); ANION GAP 9 (8-16); ASPARTATE AMINO TRANSFERASE 16 U/L (10-37); CALCIUM 8.1 MG/DL (8.5-10.1); GLUCOSE 146 MG/DL (70-104); MAGNESIUM 1.9 MG/DL (1.5-2.4); PHOSPHORUS 2.5 MG/DL (2.3-4.5); TOTAL CARBON DIOXIDE 26.4 MMOL/L (24-32)
[2022-04-02] MEDS ORDERED: diazepam 5mg tablet PO ONE (11:55)
[2022-04-02] MEDS ORDERED: CETI10TA14 PO (13:00)
[2022-04-02] MEDS ORDERED: ATOR10TA70 PO (13:00)
[2022-04-02] MEDS ORDERED: DIAZ5TAB22 PO (13:00)
[2022-04-02] MEDS ORDERED: METO-539 PO (13:00)
[2022-04-02] MEDS ORDERED: AMLO5TAB16 PO (13:00)
--- NOTE | 2022-04-02 13:17 | NUR ---
PT GOING TO [facility]
--- NOTE | 2022-04-02 15:16 | NUR ---
PT HAS RETURNED FROM [facility]. PT IS REQUESTING HIS MORNING BP MEDICATION Addendum: 04/02/22 at [address] OROSCO CALLED REGARDING AM MEDICATION. ORDER TO HOLD MEDS UNTIL HE HAS REVIEWED THE SCAN AND SEEN THE PT. PT WAS NOTIFIED
[2022-04-02 15:20] LABS: CHOL/HDL RATIO 2.5 (0.00-4.99); CHOLESTEROL 135 MG/DL (0-200); HDL CHOLESTEROL 54 MG/DL (35-60); LDL CHOLESTEROL 71 MG/DL (50-100); TRIGLYCERIDES 55 MG/DL (20-135)
[2022-04-02] MEDS: cetirizine 10mg tablet PO SCH (15:35)
[2022-04-02] MEDS ORDERED: atorvastatin 10mg tablet PO SCH (15:35)
[2022-04-02] MEDS: amLODIPine 5mg tablet PO SCH ×2 (15:35→18:03)
[2022-04-02] MEDS: metoprolol succinate 25mg (24-HOUR) SR. Tablet PO SCH (16:43)
[2022-04-02] MEDS ORDERED: nitroGLYCERIN 0.4mg/hour patch TD ONE (17:05)
--- NOTE | 2022-04-02 18:04 | NUR ---
metoprolol and nitro patch held per pt request
[2022-04-02] MEDS: K and/or MAG REPLACEMENT MC SCH (18:21)
[2022-04-02] MEDS: diazepam 5mg tablet PO PRN (19:54)
[2022-04-02] MEDS ORDERED: enoxaparin 80mg/0.8ml syringe SUBCUT SCH (20:00)
[2022-04-02] MEDS ORDERED: temazepam 15mg capsule PO PRN (21:00)
--- NOTE | 2022-04-03 00:35 | NUR ---
Pt states he has aound $200 and 3 credits cards, refused registration keep for him, he wants to keep it with him, Charge nurse notified.
[2022-04-03 02:00] VITALS: BP 131/65
--- NOTE | 2022-04-03 02:49 | NUR ---
Pt at 2:30 AM stated he has bladder cancer and last tight (04/02/2022 )did not take flomax pill which usually he takes daily, primary did bladder scan, residum was 150 ml, after wards he urine again right away, stated he feels better now, it came out most of them, will notify AM nurse to get MD order Flomax daily.
[2022-04-03 06:02] LABS: BASOPHILS # (AUTO) 0.1 X10'3 (0-0.2); EOSINOPHILS # (AUTO) 0.6 X10'3 (0-0.9); EOSINOPHILS % (AUTO) 6.7 % (0-6); MEAN CORPUSCULAR VOLUME 92.8 FL (78-98); MONOCYTES # (AUTO) 0.8 X10'3 (0-0.9); MONOCYTES % (AUTO) 9.5 % (2-12); NEUTROPHILS # (AUTO) 3.9 X10'3 (1.8-7.7)
[2022-04-03 06:05] LABS: HEMATOCRIT 41.6 % (42.0-52.0); HEMOGLOBIN 14.3 g/dl (14.0-17.9); LYMPHOCYTES # (AUTO) 3.1 X10'3 (1.1-4.8); LYMPHOCYTES % (AUTO) 36.3 % (21-51); MEAN CORPUSCULAR HEMOGLOBIN 31.8 PG (27.0-31.0); MEAN CORPUSCULAR HGB CONC 34.3 g/dL (33.0-36.5); MEAN PLATELET VOLUME 8.4 FL (7.4-10.4); NEUTROPHILS % (AUTO) 46.5 % (42-75); RED BLOOD COUNT 4.49 X10'6 (4.70-6.10); RED CELL DISTRIBUTION WIDTH 13.5 % (11.5-14.5); WHITE BLOOD COUNT 8.5 X10'3 (4.5-11.0)
[2022-04-03 06:14] LABS: ALANINE AMINOTRANSFERASE 25 U/L (12-78); ALBUMIN 3.1 G/DL (3.4-5.0); ALKALINE PHOSPHATASE 59 IU/L (46-116); ANION GAP 7 (8-16); BILIRUBIN,TOTAL 0.5 MG/DL (0.1-1.0); BLOOD UREA NITROGEN 10 MG/DL (7-18); BUN/CREATININE RATIO 14.1 (5.4-32.0); CALCIUM 8.6 MG/DL (8.5-10.1); CHLORIDE 105 MMOL/L (99-107); CREATININE 0.71 MG/DL (0.60-1.10); GLUCOSE 114 MG/DL (70-104); MAGNESIUM 2.1 MG/DL (1.5-2.4); SODIUM 139 MMOL/L (135-145); TOTAL CARBON DIOXIDE 26.8 MMOL/L (24-32); TOTAL PROTEIN 6.2 G/DL (6.4-8.2); eGFR > 90 ML/MIN
[2022-04-03 06:17] LABS: ASPARTATE AMINO TRANSFERASE 24 U/L (10-37); PHOSPHORUS 3.3 MG/DL (2.3-4.5); POTASSIUM 4.4 MMOL/L (3.5-5.1)
--- NOTE | 2022-04-03 06:46 | NUR ---
Bedside report to AM Traveller ISIS Hale.
[2022-04-03 07:00] VITALS: BP 140/73
[2022-04-03 07:23] LABS: PLATELET COUNT 241 X10'3 (140-440)
[2022-04-03 07:24] LABS: LARGE PLATELETS FEW; PLATELET ESTIMATE NORMAL
[2022-04-03] MEDS ORDERED: clopidogrel 75mg tablet PO SCH (08:00)
[2022-04-03] MEDS ORDERED: atorvastatin 20mg tablet PO SCH (08:00)
[2022-04-03] MEDS: K and/or MAG REPLACEMENT MC SCH (08:00)
[2022-04-03] MEDS ORDERED: metoprolol succinate 25mg (24-HOUR) SR. Tablet PO SCH (08:00)
[2022-04-03] MEDS: cetirizine 10mg tablet PO SCH (08:09)
[2022-04-03] MEDS: metoprolol succinate 25mg (24-HOUR) SR. Tablet PO SCH (08:09)
[2022-04-03] MEDS: amLODIPine 5mg tablet PO SCH (08:10)
--- NOTE | 2022-04-03 08:20 | NUR ---
"MORNING DR. HAWLEY. PT [place], ROOM 3028B ASKING TO START HIS HOME MEDS FLOMAX 0.4MG FOR BLADDER CANCER AND DIAZEPAM 5 MG BID FOR ANXIETY. THANK YOU, GIANNA Phillips RN"
[2022-04-03] MEDS ORDERED: aspirin 81mg tab.chew PO SCH (08:30)
[2022-04-03] MEDS ORDERED: FLO0.4C PO (12:04)
[2022-04-03] MEDS: diazepam 5mg tablet PO PRN (12:04)
[2022-04-03] MEDS ORDERED: AMLO10TA PO (12:07)
[2022-04-03] MEDS ORDERED: CLOP75TA34 PO (12:07)
[2022-04-03] MEDS ORDERED: NITR0.4T51 SL (12:07)
[2022-04-03] MEDS ORDERED: ATOR40TA PO (12:07)
[2022-04-03 13:00] VITALS: BP 136/72
--- NOTE | 2022-04-03 13:45 | NUR ---
PATIENT LEFT THE FLOOR AT 1319. HE SAID THAT HE WILL WAIT DOWNSTAIRS FOR HIS SISTER. DISCHARGE INSTRUCTIONS PROVIDED. PATIENT VERBALIZED UNDERSTANDING.
--- NOTE | 2022-04-25 08:27 | NUR ---
Case Management DC follow up: Spoke with Patient via telephone.S/P: Patient Reports:. Denies: Acute/continuous CP, emergent SOB, resp distress, orthopnea, dyspnea, N/V, weakness, syncope episodes, orthostatic hypotension, RALPH, blurry vision, s/s of stroke/Be-FAST, dysphagia, bladder pain, hematuria.Verbalizes he intermittently has retention,and a weak stream while voiding.Verbalizes history of prostate cancer.Denies: Abdominal pain/distention, hematochezia, melena, unexplained bruising, bleeding, fever, chills.Verbalizes understanding of new Rx:, why prescribed;continues/resumes current Rx as ordered.Verbalizes understanding of s/s that warrant a 9-11/ER visit for further evaluation.Verbalizes follow up appointment with PCP Donell ZHU 04/28/22.Verbalizes he wants a new marketing graphics specialist opposed to his current marketing graphics specialist.Verbalizes plans to secure a referral from his PCP.Verbalizes everything was good during his stay in the hospital;no complaints.Needs met, questions/concerns addressed at DC;No further questions/concerns regarding recent hospital stay and/or DC status at this time.
== END 2022-04-03 13:17 | disposition home or self-care (01) | DRG 282 ==
LOC: ER 08:23 → ED HOLD 09:55 → PCU 3S 19:30
PROVIDERS: ADMIT Family Medicine; ATTEND Family Medicine
PROC: 4A02XM4 Measurement of Cardiac Total Activity, External Approach (ICD-10-PCS; principal; 2022-04-02)
PROC: 3E033HZ Introduction of Radioactive Substance into Peripheral Vein, Percutaneous Approach (ICD-10-PCS; 2022-04-02)
DX: I21.4 Non-ST elevation (NSTEMI) myocardial infarction (principal); I25.10 Atherosclerotic heart disease of native coronary artery without angina pectoris; E78.5 Hyperlipidemia, unspecified; Z96.653 Presence of artificial knee joint, bilateral; R00.0 Tachycardia, unspecified; F12.90 Cannabis use, unspecified, uncomplicated; F43.10 Post-traumatic stress disorder, unspecified; I11.0 Hypertensive heart disease with heart failure; I50.9 Heart failure, unspecified; Z79.02 Long term (current) use of antithrombotics/antiplatelets; Z79.82 Long term (current) use of aspirin; Z82.49 Family history of ischemic heart disease and other diseases of the circulatory system; Z88.1 Allergy status to other antibiotic agents; Z88.8 Allergy status to other drugs, medicaments and biological substances; Z79.899 Other long term (current) drug therapy; Z85.46 Personal history of malignant neoplasm of prostate
CPT/HCPCS: 36415; 71045; 78452; 80053; 80061; 83735; 83880; 84100; 84484; 85008; 85025; 87081; 93005; 93017; 93306; 96360; 99285; A9500; G0378; J1650; J2785; J7030

== ENCOUNTER 2022-05-16 09:22 | Emergency (ER) | payer MEDICARE, OTHER ==
[~2022-05-16] VITALS: Ht 165.1 cm; Wt 77.0 kg
[~2022-05-16 09:22] MED LIST changes: +AMLO10TA PO; -ATOR20TA66 PO; +CETI10TA14 PO; -CLOP75TA15 PO; +CLOP75TA34 PO; +DIAZ5TAB22 PO; -DIAZ5TAB4 PO; +FLO0.4C PO; -METO-395 PO; +METO-539 PO; +NITR0.4T51 SL
[2022-05-16 10:04] LABS: BASOPHILS % (AUTO) 0.6 % (0-1); EOSINOPHILS # (AUTO) 0.3 X10'3 (0-0.9); EOSINOPHILS % (AUTO) 4.4 % (0-6); HEMATOCRIT 47.6 % (42.0-52.0); LYMPHOCYTES # (AUTO) 1.3 X10'3 (1.1-4.8); LYMPHOCYTES % (AUTO) 18.4 % (21-51); MEAN CORPUSCULAR HEMOGLOBIN 31.2 PG (27.0-31.0); MEAN CORPUSCULAR HGB CONC 33.6 g/dL (33.0-36.5); MEAN CORPUSCULAR VOLUME 92.9 FL (78-98); MEAN PLATELET VOLUME 7.5 FL (7.4-10.4); MONOCYTES # (AUTO) 0.9 X10'3 (0-0.9); MONOCYTES % (AUTO) 13.1 % (2-12); NEUTROPHILS # (AUTO) 4.5 X10'3 (1.8-7.7); NEUTROPHILS % (AUTO) 63.5 % (42-75); PLATELET COUNT 279 X10'3 (140-440); RED BLOOD COUNT 5.12 X10'6 (4.70-6.10); RED CELL DISTRIBUTION WIDTH 13.8 % (11.5-14.5)
[2022-05-16 10:17] LABS: ALANINE AMINOTRANSFERASE 58 U/L (12-78); ALBUMIN 4.2 G/DL (3.4-5.0); ALBUMIN/GLOBULIN RATIO 1.1 (1.1-1.5); ALKALINE PHOSPHATASE 101 IU/L (46-116); ASPARTATE AMINO TRANSFERASE 33 U/L (10-37); BILIRUBIN,TOTAL 0.3 MG/DL (0.1-1.0); CALCIUM 9.2 MG/DL (8.5-10.1); TOTAL CARBON DIOXIDE 32.4 MMOL/L (24-32)
[2022-05-16 10:25] LABS: MAGNESIUM 2.3 MG/DL (1.5-2.4)
[2022-05-16] MEDS ORDERED: acetaminophen 325mg tablet PO ONE (10:50)
[2022-05-16 11:02] LABS: ANION GAP 5 (8-16); BLOOD UREA NITROGEN 16 MG/DL (7-18); BUN/CREATININE RATIO 19.3 (5.4-32.0); CHLORIDE 101 MMOL/L (99-107); CREATININE 0.83 MG/DL (0.60-1.10); GLUCOSE 147 MG/DL (70-104); POTASSIUM 4.4 MMOL/L (3.5-5.1); SODIUM 138 MMOL/L (135-145); eGFR > 90 ML/MIN
--- NOTE | 2022-05-16 12:52 | NUR ---
Notified AUDRA Erickson that pt is c/o increase chest pressure ,takes valium for anxitey ,as per pa give valium 5 mg PO Once.
[2022-05-16] MEDS ORDERED: diazepam 5mg tablet PO ONE (12:55)
[2022-05-16 13:23] VITALS: BP_DIAS 84
[2022-05-16] MEDS ORDERED: amLODIPine 5mg tablet PO ONE (13:50)
[2022-05-16 14:00] VITALS: BP_SYST 148
== END 2022-05-16 15:58 | disposition home or self-care (01) ==
LOC: ER 09:22
DX: R07.89 Other chest pain (principal); I11.0 Hypertensive heart disease with heart failure; I50.9 Heart failure, unspecified; F41.9 Anxiety disorder, unspecified; Z72.89 Other problems related to lifestyle; Z88.1 Allergy status to other antibiotic agents; Z88.8 Allergy status to other drugs, medicaments and biological substances; Z79.899 Other long term (current) drug therapy
CPT/HCPCS: 36415; 71045; 80053; 83735; 83880; 84484; 85025; 85379; 93005; 99285

== ENCOUNTER 2022-09-10 07:20 | Inpatient (IN) | payer MEDICARE, MEDICAID ==
[2022-09-10] VITALS (9 sets, daily range): BP systolic 123–178; BP diastolic 67–97
[~2022-09-10] VITALS: Ht 165.1 cm; Wt 79.5 kg
[2022-09-10 07:44] LABS: BASOPHILS % (AUTO) 0.7 % (0-1); EOSINOPHILS # (AUTO) 0.3 X10'3 (0-0.9); EOSINOPHILS % (AUTO) 5.3 % (0-6); HEMATOCRIT 46.2 % (42.0-52.0); HEMOGLOBIN 15.2 g/dl (14.0-17.9); LYMPHOCYTES % (AUTO) 31.3 % (21-51); MEAN CORPUSCULAR HEMOGLOBIN 30.8 PG (27.0-31.0); MEAN CORPUSCULAR VOLUME 93.3 FL (78-98); MEAN PLATELET VOLUME 7.3 FL (7.4-10.4); MONOCYTES # (AUTO) 0.5 X10'3 (0-0.9); MONOCYTES % (AUTO) 7.7 % (2-12); NEUTROPHILS # (AUTO) 3.5 X10'3 (1.8-7.7); PLATELET COUNT 288 X10'3 (140-440); RED BLOOD COUNT 4.95 X10'6 (4.70-6.10); RED CELL DISTRIBUTION WIDTH 13.3 % (11.5-14.5); WHITE BLOOD COUNT 6.3 X10'3 (4.5-11.0)
[2022-09-10 07:56] LABS: ALANINE AMINOTRANSFERASE 28 U/L (12-78); ALBUMIN 3.7 G/DL (3.4-5.0); ALBUMIN/GLOBULIN RATIO 1.2 (1.1-1.5); ALKALINE PHOSPHATASE 69 IU/L (46-116); ANION GAP 4 (8-16); ASPARTATE AMINO TRANSFERASE 13 U/L (10-37); BILIRUBIN,TOTAL 0.4 MG/DL (0.1-1.0); BLOOD UREA NITROGEN 11 MG/DL (7-18); BUN/CREATININE RATIO 12.8 (10.0-20.0); CHLORIDE 102 MMOL/L (99-107); CREATININE 0.86 MG/DL (0.60-1.10); GLUCOSE 150 MG/DL (70-104); POTASSIUM 4.1 MMOL/L (3.5-5.1); SODIUM 137 MMOL/L (135-145); TOTAL CARBON DIOXIDE 30.6 MMOL/L (24-32); TOTAL PROTEIN 6.8 G/DL (6.4-8.2); eGFR 87 ML/MIN
[2022-09-10 08:02] LABS: MAGNESIUM 2.1 MG/DL (1.5-2.4)
[2022-09-10] MEDS ORDERED: heparin 10,000 units/1 ML INJ IV ONE ×2 (08:10→08:20)
[2022-09-10] MEDS ORDERED: aspirin 81mg tab.chew PO ONE (08:10)
[2022-09-10] MEDS ORDERED: heparin 10,000 units/1 ML INJ IV PRN (08:10)
[2022-09-10] MEDS ORDERED: heparin 25,000 UNIT/250ml bag 250 ML IV PRN (08:10)
[2022-09-10] MEDS ORDERED: nitroGLYCERIN-Tridil 50MG/D5W 250 ML IV PRN (08:10)
--- NOTE | 2022-09-10 08:19 | NUR ---
PER DR UMBERTO LOUIS TO GIVE PT HOME DOSE OF VALIUM 5MG PO ONCE AND FOR RN TO PLACE ORD.
[2022-09-10] MEDS ORDERED: diazepam 5mg tablet PO ONE (08:20)
[2022-09-10 08:56] LABS: APTT 29 SECONDS (22-32)
[2022-09-10] MEDS ORDERED: morphine 4 MG/ML inj SYRINge IV PRN (10:20)
[2022-09-10] MEDS ORDERED: midazolam 1 mg/ML 2ml injection ONE ×2 (11:05→11:48)
[2022-09-10] MEDS ORDERED: iohexol 350 MG/ML 50ML vial IV ONE (11:05)
[2022-09-10] MEDS ORDERED: fentaNYL/PF 50MCG/1 ML 2ML syringe ONE ×2 (11:05→11:48)
[2022-09-10] MEDS ORDERED: LIDOcaine 1% 30ml preserv. free vial ONE (11:05)
[2022-09-10] MEDS ORDERED: heparin 1,000unit/ml 10ml vial 0 ML ONE (11:05)
[2022-09-10] MEDS ORDERED: iohexol 350MG/ML 100ml bottle IV ONE ×2 (11:06→12:25)
[2022-09-10] MEDS ORDERED: heparin 25,000 UNIT/250ml bag 0 ML IV ONE (11:06)
[2022-09-10] MEDS ORDERED: tirofiban 12.5mg in NS 250mL 250 ML IV ONE (11:06)
--- NOTE | 2022-09-10 11:18 | NUR ---
PT TAKEN TO ENGRAVER AUTOMATIC.
[2022-09-10] MEDS ORDERED: acetaminophen 325mg tablet PO PRN ×2 (11:25)
[2022-09-10] MEDS ORDERED: morphine 2 MG/ML inj. syringe IV PRN ×2 (11:25)
[2022-09-10] MEDS ORDERED: magnesium 4gm in 100ml NS 100 ML IV PRN (11:25)
[2022-09-10] MEDS ORDERED: ondansetron/PF 4mg/2ml inj IV PRN ×2 (11:25→14:05)
[2022-09-10] MEDS ORDERED: potassium Cl 40MEQ/1/2NS 520ml 520 ML IV PRN (11:25)
[2022-09-10] MEDS ORDERED: magnesium hydroxide 30ml (MOM) UD suspension PO PRN (11:25)
[2022-09-10] MEDS ORDERED: nitroGLYCERIN 0.4mg SUBLingual tab SL PRN ×2 (11:25→14:05)
[2022-09-10] MEDS ORDERED: ondansetron 4mg rapidly disintigrating tab PO PRN (11:25)
[2022-09-10] MEDS ORDERED: mag hydrox/Alum hydrox/simeth 30ml oral suspension PO PRN (11:25)
[2022-09-10] MEDS ORDERED: acetaminophen 650mg rectal suppository RC PRN (11:25)
[2022-09-10] MEDS: normal saline 1000ml 1,000 ML IV SCH ×2 (11:25→22:10)
[2022-09-10] MEDS ORDERED: magnesium Cl slow-release 64mg tablet PO PRN (11:25)
[2022-09-10] MEDS ORDERED: magnesium 2GM in 50ml NS 50 ML IV PRN (11:25)
[2022-09-10] MEDS ORDERED: potassium Cl 20 mEq SR tablet PO PRN ×2 (11:25)
[2022-09-10] MEDS ORDERED: diphenhydrAMINE 50 mg/ml inj ONE (11:34)
[2022-09-10] MEDS ORDERED: nitroGLYCERIN-Tridil 50MG/D5W 250 ML IV ONE (12:05)
[2022-09-10] MEDS ORDERED: ticagrelor 90mg tablet ONE (12:20)
[2022-09-10] MEDS ORDERED: HYDROcodone/acetaminophen 5mg/325mg tablet PO PRN (14:05)
[2022-09-10] MEDS ORDERED: proCHLORperazine 10 MG/2 ml inj IV PRN (14:05)
[2022-09-10] MEDS ORDERED: normal saline 1000ml 1,000 ML IV SCH (14:05)
[2022-09-10] MEDS ORDERED: HYDROcodone/acetaminophen 10/325mg tab PO PRN (14:05)
[2022-09-10] MEDS ORDERED: OXAZEpam 15mg capsule PO PRN (14:05)
[2022-09-10] MEDS ORDERED: ATOR10TA70 PO (15:23)
[2022-09-10] MEDS ORDERED: METO-395 PO (15:23)
[2022-09-10] MEDS ORDERED: AMLO5TAB16 PO (15:23)
[2022-09-10] MEDS ORDERED: DIAZ5TAB5 PO (15:23)
[2022-09-10 15:56] LABS: CHOL/HDL RATIO 3.3 (0.00-4.99); CHOLESTEROL 173 MG/DL (0-200); HDL CHOLESTEROL 52 MG/DL (35-60); LDL CHOLESTEROL 100 MG/DL (50-100); TRIGLYCERIDES 129 MG/DL (20-135)
[2022-09-10] MEDS: diazepam 5mg tablet PO PRN ×2 (16:24→23:00)
--- NOTE | 2022-09-10 17:37 | NUR ---
PAGER ID: [phone] MESSAGE: [id number] Alexys Mak. Last BP 134/72 HR 56. Denny/Ira DA SILVA
--- NOTE | 2022-09-10 18:24 | NUR ---
Problems reprioritized. Patient report given, questions answered & plan of care reviewed with Corbin MARINELLI, patient stable at transfer of care.
[2022-09-10] MEDS: ticagrelor 90mg tablet PO SCH (19:54)
[2022-09-10] MEDS: docusate sod 100mg capsule PO SCH (19:54)
[2022-09-10] MEDS: K and/or MAG REPLACEMENT MC SCH (20:00)
[2022-09-10] MEDS ORDERED: atorvastatin 10mg tablet PO SCH (21:00)
[2022-09-10] MEDS ORDERED: temazepam 15mg capsule PO PRN (21:00)
[2022-09-11 03:00] VITALS: BP 129/63
[2022-09-11 07:00] VITALS: BP 145/78
[2022-09-11] MEDS: diazepam 5mg tablet PO PRN (07:12)
[2022-09-11] MEDS: normal saline 1000ml 1,000 ML IV SCH (07:25)
[2022-09-11] MEDS: ticagrelor 90mg tablet PO SCH (07:41)
[2022-09-11 07:44] LABS: BASOPHILS % (AUTO) 0.5 % (0-1); EOSINOPHILS # (AUTO) 0.4 X10'3 (0-0.9); EOSINOPHILS % (AUTO) 4.9 % (0-6); HEMATOCRIT 41.2 % (42.0-52.0); HEMOGLOBIN 13.8 g/dl (14.0-17.9); LYMPHOCYTES # (AUTO) 1.6 X10'3 (1.1-4.8); LYMPHOCYTES % (AUTO) 22.2 % (21-51); MEAN CORPUSCULAR HEMOGLOBIN 30.9 PG (27.0-31.0); MEAN CORPUSCULAR HGB CONC 33.5 g/dL (33.0-36.5); MEAN CORPUSCULAR VOLUME 92.3 FL (78-98); MEAN PLATELET VOLUME 7.4 FL (7.4-10.4); MONOCYTES # (AUTO) 0.7 X10'3 (0-0.9); MONOCYTES % (AUTO) 8.9 % (2-12); NEUTROPHILS # (AUTO) 4.7 X10'3 (1.8-7.7); NEUTROPHILS % (AUTO) 63.5 % (42-75); PLATELET COUNT 254 X10'3 (140-440); RED BLOOD COUNT 4.46 X10'6 (4.70-6.10); RED CELL DISTRIBUTION WIDTH 13.2 % (11.5-14.5); WHITE BLOOD COUNT 7.4 X10'3 (4.5-11.0)
[2022-09-11] MEDS: docusate sod 100mg capsule PO SCH (07:45)
[2022-09-11] MEDS ORDERED: amLODIPine 2.5mg tablet PO SCH ×2 (08:00)
[2022-09-11] MEDS: K and/or MAG REPLACEMENT MC SCH (08:00)
[2022-09-11] MEDS ORDERED: metoprolol succinate 25mg (24-HOUR) SR. Tablet PO SCH ×2 (08:00)
[2022-09-11 08:01] LABS: ALANINE AMINOTRANSFERASE 21 U/L (12-78); ALBUMIN 3.3 G/DL (3.4-5.0); ALBUMIN/GLOBULIN RATIO 1.3 (1.1-1.5); ALKALINE PHOSPHATASE 59 IU/L (46-116); ANION GAP 6 (8-16); ASPARTATE AMINO TRANSFERASE 13 U/L (10-37); BILIRUBIN,TOTAL 0.5 MG/DL (0.1-1.0); BLOOD UREA NITROGEN 7 MG/DL (7-18); BUN/CREATININE RATIO 9.9 (10.0-20.0); CALCIUM 8.8 MG/DL (8.5-10.1); CHLORIDE 105 MMOL/L (99-107); CREATININE 0.71 MG/DL (0.60-1.10); GLUCOSE 102 MG/DL (70-104); MAGNESIUM 2.2 MG/DL (1.5-2.4); POTASSIUM 3.9 MMOL/L (3.5-5.1); SODIUM 139 MMOL/L (135-145); TOTAL CARBON DIOXIDE 28.3 MMOL/L (24-32); TOTAL PROTEIN 5.8 G/DL (6.4-8.2); eGFR > 90 ML/MIN
[2022-09-11] MEDS ORDERED: ASPI-1265 PO (08:24)
[2022-09-11] MEDS ORDERED: aspirin 81mg tab.chew PO SCH (08:30)
[2022-09-11 10:30] VITALS: BP 159/74
[2022-09-11] MEDS ORDERED: TICA90TA PO (11:35)
[2022-09-11] MEDS ORDERED: ATOR40TA PO (11:35)
[2022-09-11] MEDS ORDERED: AMLO2.5T5 PO (11:35)
--- NOTE | 2022-09-11 13:00 | NUR ---
Patient was stressing out about his blood pressure and heart rate, which were both within normal range. His blood pressure was slightly elevated, but it was increasing because he was having anxiety due to continuously watching the vitals machine. Cardiology and Dr. Guaman were both aware of the patients condition and were not concerned. I walked into the patients room and found him taking a bottle of nitroglycerin out of his pocket. I asked him what it was and educated him that he was not supposed to take home Meds while he's in the hospital. I took the bottle from him and told him I was going to put it in his chart and give it to him when he discharged. After about 30 minutes I went back in and he was stressing about his blood pressure again and told me he took one of his home metoprolol pills 25mg. I told him that was not a good idea and that we would watch his vitals because that wasn't a good choice. His vitals were fine and we discharged him home.
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
== END 2022-09-11 14:45 | disposition home or self-care (01) | DRG 247 ==
LOC: ER 07:20 → PAS IN 11:45 → PCU 3S 14:47
PROVIDERS: ADMIT Family Medicine; ATTEND Family Medicine
PROC: 4A023N7 Measurement of Cardiac Sampling and Pressure, Left Heart, Percutaneous Approach (ICD-10-PCS; principal; 2022-09-10)
PROC: 027035Z Dilation of Coronary Artery, One Artery with Two Drug-eluting Intraluminal Devices, Percutaneous Approach (ICD-10-PCS; 2022-09-10)
PROC: B2111ZZ Fluoroscopy of Multiple Coronary Arteries using Low Osmolar Contrast (ICD-10-PCS; 2022-09-10)
PROC: B2151ZZ Fluoroscopy of Left Heart using Low Osmolar Contrast (ICD-10-PCS; 2022-09-10)
DX: I25.110 Atherosclerotic heart disease of native coronary artery with unstable angina pectoris (principal); C61 Malignant neoplasm of prostate; E78.00 Pure hypercholesterolemia, unspecified; F43.10 Post-traumatic stress disorder, unspecified; I49.8 Other specified cardiac arrhythmias; F41.1 Generalized anxiety disorder; I11.0 Hypertensive heart disease with heart failure; Z96.653 Presence of artificial knee joint, bilateral; I49.3 Ventricular premature depolarization; I50.9 Heart failure, unspecified; K76.0 Fatty (change of) liver, not elsewhere classified; Z79.02 Long term (current) use of antithrombotics/antiplatelets; Z82.49 Family history of ischemic heart disease and other diseases of the circulatory system; Z79.82 Long term (current) use of aspirin; Z88.1 Allergy status to other antibiotic agents; Z88.8 Allergy status to other drugs, medicaments and biological substances; Z79.899 Other long term (current) drug therapy
CPT/HCPCS: 93458; 99285; C9600; 36415; 71045; 80053; 80061; 83735; 83880; 84484; 85025; 85610; 85730; 93005; 99152; 99153; A4349; A6258; C1751; C1760; C1769; C1874; G0378; J1200; J1644; J2250; J2270; J3010; J3246; J3490; J7030; Q9967